=== PATIENT | male | born 1975 | race Caucasian/White ===

== ENCOUNTER 2018-11-06 14:17 | Emergency (ER) | payer OTHER ==
[~2018-11-06] VITALS: Wt 119.0 kg
[~2018-11-06 14:17] MED LIST: BENAZEPRIL PO; HYDROCHLOROTHIAZIDE PO
[2018-11-06] MEDS ORDERED: SOD CHLORIDE 0.9% 1,000 ML IV STA (18:02)
[2018-11-06] MEDS ORDERED: ONDANSETRON 4 MG INJ IV STA (18:02)
[2018-11-06] MEDS ORDERED: KETOROLAC 15 MG INJ IV STA (18:02)
--- NOTE | 2018-11-06 18:16 | ERD ---
ER Documentation Chief Complaint Chief Complaint L SIDED FLANK PAIN SINCE THIS MORNING HPI 43-year-old man complains of left intermittent flank and groin pain with a few episodes of nausea and vomiting beginning this morning, he has a remote history of kidney stones and has had similar episodes in the past. Patient denies hematuria, no fevers or chills, no chest pain or shortness of breath. ROS All systems reviewed and are negative except as per history of present illness. Medications Home Meds Active Scripts Oxycodone HCl/Acetaminophen (Percocet 5-325 mg Tablet) 1 Each Tablet, 1 EACH PO TID PRN for PAIN, #10 TAB Prov:ALEJANDRA JOSHUA MD 11/06/18 Cephalexin* (Keflex*) 500 Mg Capsule, 500 MG PO QID for 5 Days, CAP Prov:ALEJANDRA JOSHUA MD 11/06/18 Tamsulosin Hcl* (Flomax*) 0.4 Mg Cap.er.24h, 0.4 MG PO QPM, #5 CAP Prov:ALEJANDRA JOSHUA MD 11/06/18 Discontinued Reported Medications [Hydrochlorothiazide] No Conflict Check, PO 01/09/15 [Benazepril] No Conflict Check, PO 01/09/15 Allergies Allergies: Uncoded Allergies: STRAWBERRIES (Adverse Reaction, Unknown, THROAT SWELLING, 01/09/15) PMhx/Soc Kidney stones History of Surgery: Yes (LEFT INGUINAL HERNIA) Anesthesia Reaction: No Hx Neurological Disorder: No Hx Respiratory Disorders: No Hx Cardiac Disorders: Yes (HTN) Hx Psychiatric Problems: No Hx Miscellaneous Medical Probl: No Hx Alcohol Use: Yes (OCCASIONAL) Hx Substance Use: No Hx Tobacco Use: No Smoking Status: Never smoker FmHx Family History: No diabetes Physical Exam Vitals Vital Signs Date Temp Pulse Resp B/P (MAP) Pulse Ox O2 O2 Flow FiO2 Time Delivery Rate 11/06/18 98.1 70 20 115/61 100 Room Air 21:20 (79) 11/06/18 59 20 119/77 100 Room Air 18:16 (91) 11/06/18 98.1 81 18 135/71 99 14:25 (92) Physical Exam GENERAL: Well-developed, appears dehydrated, afebrile HEENT: Dry mucous membranes, pink conjunctiva, no cervical spine tenderness or step-off deformities, no goiter, no jaundice or icterus, extraocular movements intact without pain. CARDIAC: Regular rate and rhythm, no murmurs rubs or gallops LUNGS: Clear bilaterally no wheezing crackles or stridor ABDOMEN: Soft nontender, no guarding, no rigidity, no rebound, no psoas sign no obturator sign. Normoactive bowel sounds SKIN: Warm and dry to touch, no abrasions, contusions, or hematomas, no lacerations, no ecchymosis, no target lesions, and without ulcers EXTREMITIES: No clubbing cyanosis or edema, calves are bilaterally symmetrical, no Homans sign, no popliteal cord sign. Distal pulses equal and bilateral PSYCH: Normal affect without agitation or irritability Result Diagram: 11/06/18180511/06/181805 Results 24 hrs Laboratory Tests Test 11/06/18 18:06 11/06/18 18:38 White Blood Count 10.2 10^3/ul Red Blood Count 5.39 10^6/ul Hemoglobin 16.2 g/dl Hematocrit 49.6 % Mean Corpuscular Volume 92.0 fl Mean Corpuscular Hemoglobin 30.1 pg Mean Corpuscular Hemoglobin Concent 32.7 g/dl Red Cell Distribution Width 12.6 % Platelet Count 182 10^3/UL Mean Platelet Volume 9.9 fl Immature Granulocytes % 0.400 % Neutrophils % % Segmented Neutrophils % (Manual) 78 % Band Neutrophils % (Manual) 9 % Lymphocytes % % Lymphocytes % (Manual) 11 % Monocytes % % Monocytes % (Manual) 1 % Eosinophils % % Basophils % % Basophils % (Manual) 1 % Nucleated Red Blood Cells % 0.0 /100WBC Immature Granulocytes # 0.040 10^3/ul Neutrophils # 10^3/ul Neutrophils # (Manual) 8.0 10^3/ul Band Neutrophils # 0.9 10^3/ul Lymphocytes (Manual) 1.1 10^3/ul Lymphocytes # 10^3/ul Monocytes # 10^3/ul Monocytes # (Manual) 0.1 10^3/ul Eosinophils # 10^3/ul Basophils # 10^3/ul Basophils # (Manual) 0.1 10^3/ul Nucleated Red Blood Cells # 10^3/ul Platelet Estimate NORMAL Giant Platelets 1 % Sodium Level 143 mmol/L Potassium Level 4.6 mmol/L Chloride Level 106 mmol/L Carbon Dioxide Level 25 mmol/L Anion Gap 12 Blood Urea Nitrogen 21 mg/dl Creatinine 1.20 mg/dl Est Glomerular Filtrat Rate mL/min > 60 mL/min Glucose Level 106 mg/dl Calcium Level 10.1 mg/dl Total Bilirubin 0.9 mg/dl Direct Bilirubin 0.00 mg/dl Indirect Bilirubin 0.9 mg/dl Aspartate Amino Transf (AST/SGOT) 31 IU/L Alanine Aminotransferase (ALT/SGPT) 23 IU/L Alkaline Phosphatase 67 IU/L Total Protein 8.4 g/dl Albumin 4.7 g/dl Globulin 3.70 g/dl Albumin/Globulin Ratio 1.27 Lipase 64 U/L Urine Color YELLOW Urine Clarity CLEAR Urine pH 8.0 Urine Specific [place] 1.020 Urine Ketones TRACE mg/dL Urine Nitrite NEGATIVE mg/dL Urine Bilirubin NEGATIVE mg/dL Urine Urobilinogen NEGATIVE mg/dL Urine Leukocyte Esterase NEGATIVE [place]/ul Urine Hemoglobin NEGATIVE mg/dL Urine Glucose NEGATIVE mg/dL Urine Total Protein NEGATIVE mg/dl Current Medications Medications Dose Sig/Valery Start Time Status Last (Trade) Ordered Route PRN Stop Time Admin Dose Reason Admin Sodium 1,000 ml @ Q1H STAT 11/06/18 DC 11/06/18 Chloride 1,000 mls/hr IV 18:02 11/06/18 18:14 19:01 Ondansetron 4 mg ONCE STAT 11/06/18 DC 11/06/18 HCl (Zofran IV 18:02 11/06/18 18:14 Inj) 18:03 Ketorolac 15 mg ONCE STAT 11/06/18 DC 11/06/18 Tromethamine IV 18:02 11/06/18 18:14 (Toradol) 18:03 Procedures/MDM IV line was established patient was placed on guide setter rhythm strip revealed a sinus rhythm at about 80 bpm with upright P and T waves. Patient was afebrile I administered 1 L normal saline IV, Toradol 15 mg IV, Zofran [address] scan of the abdomen and pelvis was performed, IMPRESSION: 1. Mild left hydroureteronephrosis secondary to an 8 mm obstructing calculus in the proximal left ureter. 2. Small nonobstructing bilateral renal calculi. 3. Stool filled large bowel. CBC and electrolytes are normal, liver function tests were normal, urinalysis negative for infection or RBCs. Patient's pain has been controlled and is able to urinate without difficulty. Given the CT scan findings I consulted with urologist Dr. Peters regarding the patient's presentation, symptomatology, and imaging results. He recommended outpatient management with oral antibiotics, Flomax, and analgesics. Patient will follow up with his PMD for outpatient urology referral Differential diagnoses considered, included but not limited to acute coronary syndrome, pulmonary embolism, aortic dissection, abdominal aortic aneurysm, sepsis, stroke, meningitis, encephalitis, pneumonia, appendicitis, cholecystitis, bowel obstruction, pyelonephritis, nephrolithiasis, cystitis, as well as metabolic, hematologic, and electrolyte abnormalities. As well as absces s, cellulitis, fractures, and dislocations. Patient feels much better at this time, and vital signs are normal, symptoms have improved. I did give strict instructions to return to the ED if symptoms continue or worsen, patient will otherwise follow-up with primary care physician. Patient understood instructions and agreed to plan. Disclaimer: Inadvertent spelling and grammatical errors are likely due to EHR/dictation software use and do not reflect on the overall quality of patient care. Also, please note that the electronic time recorded on this note does not necessarily reflect the actual time of the patient encounter. Departure Diagnosis: Primary Impression: Flank pain Additional Impression: Ureterolithiasis Condition: ALEJANDRA Garber MD Nov 06, 2018 18:15
[2018-11-06] MEDS ORDERED: TAMS-14 PO (20:39)
[2018-11-06] MEDS ORDERED: OXYC-279 PO (20:39)
[2018-11-06] MEDS ORDERED: CEPH-443 PO (20:39)
[2018-11-06 21:20] VITALS: BP 115/61; PULSE 70; RESP 20
== END 2018-11-06 21:29 | disposition home or self-care (01) ==
LOC: E/R 14:17
DX: N20.1 Calculus of ureter (principal); I10 Essential (primary) hypertension
CPT/HCPCS: 74176; 80053; 81003; 83690; 85025; J1885; J2405; J7030; 36415; 96374; 96375